=== PATIENT | female | born 1980 | race Caucasian/White ===

== ENCOUNTER 2020-11-15 13:12 | Inpatient (IN) | payer MEDICAID, SELFPAY ==
[2020-11-15 13:15] VITALS: BMI 34.3
[2020-11-15 14:00] VITALS: BP 96/74; PULSE 99; RESP 18; TEMP 36.5; O2SAT 93
[2020-11-15] MEDS: ibuprofen 600 mg Tablet PO ×2 (16:00→21:18)
[2020-11-15] MEDS: hyDROXYzine 25 mg Capsule 50 MG PO (16:01)
--- NOTE | 2020-11-15 16:01 | PC.NURSE ---
PRN VISTARIL 50 MG GIVEN PO PER PT C/O STATED ANXIETY. NO OUTWARD S/S OF ANXIETY NOTED.
[2020-11-15 19:54] VITALS: BP 112/84; PULSE 106; RESP 17; TEMP 37.1; O2SAT 92
[2020-11-15 20:33] LABS: Bilirubin Urine Neg (Negative); Blood Urine 3+ (Negative); Glucose Urine UA Norm (Normal); Ketones Urine Negative (Negative); Leukocyte Esterase Urine 1+ (Negative); Nitrate Urine Negative (Negative); Protein Urine Trace (Negative); Urine Appearance Hazy (CLEAR); Urine Color Yellow (Yellow); Urobilinogen Urine 4 mg/dL (Negative)
[2020-11-15 20:34] LABS: Add Urine Culture? No; Bacteria Urine 2+ /hpf; Mucus Urine 2+ /hpf
[2020-11-15] MEDS: gabapentin 300 mg Capsule PO (21:17)
[2020-11-15] MEDS: mirtazapine 30 mg Tablet PO (21:17)
[2020-11-16] VITALS (10 sets, daily range): BP systolic 109–132; BP diastolic 65–83; PULSE 84–113; RESP 15–20; TEMP 37–37.4; O2SAT 89–96
[2020-11-16] MEDS: ibuprofen 600 mg Tablet PO ×2 (08:20→18:31)
[2020-11-16] MEDS: gabapentin 300 mg Capsule PO ×3 (08:20→20:54)
[2020-11-16] MEDS: fluoxetine 10 mg Capsule PO (08:20)
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
[2020-11-16] MEDS: albuterol 8 gm MDI 1 PUFF INHALATION ×3 (11:59→22:30)
[2020-11-16] MEDS: mirtazapine 30 mg Tablet PO (20:54)
[2020-11-16] MEDS: acetaminophen 325 mg Tablet 650 MG PO (20:54)
[2020-11-16] MEDS: hyDROXYzine 25 mg Capsule 50 MG PO (22:28)
--- NOTE | 2020-11-17 00:50 | PC.NURSE ---
PM assessment Pt denies AH/VH, Denies SI/HI, Denies pain, pt is resting in her room. Pt heart/lung sounds are WNL, v/s are normal.
[2020-11-17 06:00] VITALS: BP 131/75; PULSE 94; RESP 18; TEMP 37.1; O2SAT 90
[2020-11-17] MEDS: gabapentin 300 mg Capsule PO ×3 (08:19→20:18)
[2020-11-17] MEDS: ibuprofen 600 mg Tablet PO ×2 (08:19→16:58)
[2020-11-17] MEDS: fluoxetine 10 mg Capsule PO (08:19)
[2020-11-17] MEDS: acetaminophen 325 mg Tablet 650 MG PO ×2 (11:29→19:43)
[2020-11-17 14:00] VITALS: BP 118/78; PULSE 105; RESP 20; TEMP 36.7; O2SAT 90
[2020-11-17] MEDS: albuterol 8 gm MDI 1 PUFF INHALATION ×2 (15:35→22:40)
[2020-11-17 15:37] VITALS: PULSE 100; RESP 18; O2SAT 96
[2020-11-17] MEDS: hyDROXYzine 25 mg Capsule 50 MG PO ×2 (15:41→22:35)
--- NOTE | 2020-11-17 15:41 | PC.NURSE ---
PRN VISTARIL 50 MG GIVEN PO PER PT C/O STATED ANXIETY. NO OUTWARD S/S OF ANXIETY NOTED. PT HAS BEEN ASLEEP IN BED MOST OF THE DAY. WILL CONT TO MONITOR
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
[2020-11-17] MEDS: mirtazapine 30 mg Tablet PO (20:18)
--- NOTE | 2020-11-17 20:20 | PC.NURSE ---
Pain reassessed. Now 6.
[2020-11-17 21:22] VITALS: BP 117/64; PULSE 93; RESP 17; TEMP 36.8; O2SAT 93
[2020-11-17 22:40] VITALS: PULSE 89; RESP 18; O2SAT 96
[2020-11-17 22:45] VITALS: PULSE 92
--- NOTE | 2020-11-18 02:41 | PC.NURSE ---
PM assessment Patient sleeping at beginning of shift. V/s normal, Heart/ Lung sounds normal, pt confirmed headache/back ache rated 7 on 1-10 pain scale. Med nurse notified, pt received tylenol 650mg po, reported decrease in pain level. Pt came out of room for snack, interacted with other patients for around a 30 min time frame, returned to her room and is still resting at this time. Pt denies all .Will continue to monitor
[2020-11-18 06:00] VITALS: BP 124/71; PULSE 91; RESP 16; TEMP 36.6; O2SAT 96
[2020-11-18] MEDS: albuterol 8 gm MDI 1 PUFF INHALATION (07:09)
[2020-11-18 07:10] VITALS: PULSE 110; RESP 18; O2SAT 92
[2020-11-18] MEDS: gabapentin 300 mg Capsule PO ×3 (08:12→20:55)
[2020-11-18] MEDS: fluoxetine 10 mg Capsule PO (08:12)
[2020-11-18] MEDS: ibuprofen 600 mg Tablet PO ×2 (10:06→20:55)
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
[2020-11-18 14:00] VITALS: BP 101/65; PULSE 95; RESP 20; TEMP 36.4; O2SAT 93
[2020-11-18] MEDS: acetaminophen 325 mg Tablet 650 MG PO (14:22)
[2020-11-18] MEDS: hyDROXYzine 25 mg Capsule 50 MG PO ×2 (16:18→20:53)
[2020-11-18] MEDS: mirtazapine 30 mg Tablet PO (20:55)
[2020-11-18 20:57] VITALS: BP 125/83; PULSE 95; RESP 18; TEMP 36.3; O2SAT 93
[2020-11-18 22:18] VITALS: PULSE 95; RESP 17; O2SAT 94
[2020-11-19 06:00] VITALS: BP 102/65; PULSE 87; RESP 15; TEMP 36.8; O2SAT 92
[2020-11-19] MEDS: sulfamethoxazole-trimeth DS 160-800 mg Tablet 1 TAB PO ×2 (08:47→17:27)
[2020-11-19] MEDS: gabapentin 300 mg Capsule PO ×3 (08:47→20:43)
[2020-11-19] MEDS: fluoxetine 10 mg Capsule PO (08:48)
[2020-11-19] MEDS: ibuprofen 600 mg Tablet PO ×2 (09:04→14:11)
[2020-11-19] MEDS: hyDROXYzine 25 mg Capsule 50 MG PO (13:57)
[2020-11-19 14:00] VITALS: BP 123/70; PULSE 98; RESP 18; TEMP 37.2; O2SAT 94
--- NOTE | 2020-11-19 18:23 | P.PN_ITS ---
Subjective NPU Subjective: Interval history: Lida presented to session reporting wanting to discharge to her dad's today. We had a long but unfruitful conversation about the legal ability of her father to not allow her back in his home. This ended in her saying she was going to call a junior art director to make sure that her father could not treat her unfairly. We discussed the role that her drug use and erratic behavior might be playing in his concerned about her coming home which she was having nothing of. She continues to take the medication and denied any side effects. Mental Status Exam MSE Comments: This is an obese white female in hospital scrubs with adequate grooming and limited eye contact. No abnormal movements except for mild psychomotor agitation. More cooperative with exam in mild to moderate distress. Speech was more normal rate and volume. Mood described as fine, affect irritable. Thought process organized. Thought content: Patient denies suicidal or homicidal ideation, there were no delusions reported, but she does tell a story that in all likelihood was delusional or representing hallucinations, she denied any auditory or visual hallucinations. Attention and concentration were intact and memory was unreliable but none were formally tested. She is alert and oriented x3. Insight and judgment were limited, impulse control appeared limited. Vitals/I&O/Wt Last Vital Signs Temp 98.9 F 11/19/20 14:00 Pulse 98 11/19/20 14:00 Resp 18 11/19/20 14:00 BP 123/70 11/19/20 14:00 Pulse Ox 94 11/19/20 14:00 A&P Additional A&P Information (1) Psychotic disorder: (2) Methamphetamine abuse: Additional A&P Information Patient presenting from [facility] emergency department with history of schizophrenia and methamphetamine abuse for recent acute episode of psychotic symptoms in the context of recent methamphetamine use. Patient also reporting some depressive symptoms related to ongoing stressors. Currently denying any suicidal ideation or thoughts about self-harm, do not behaving in any way n ecessitating admission or needing medication adjustments. 1. Continue current medication. 2. Continue every 15 minute checks for safety. 3. Encourage individual, group and milieu therapies. 4. Encourage sober living treatment after discharge at the highest level of care to which she is willing to commit. 5. Will work with social work team for possible discharge in the next 48 hours. Attestations NPU Medical Necessity Statement*: Inpatient hospitalization is medically necessary and the clinically appropriate intervention at this time. We will monitor medications and make changes as indicated. Likely length of stay 1-3 days. Coding Level of Care Code Acute Manager Business for Chris Layton
[2020-11-19 19:57] VITALS: BP 119/74; PULSE 91; RESP 16; TEMP 36.9; O2SAT 93
[2020-11-19] MEDS: calcium carbonate 500 mg Chew Tablet PO (20:43)
[2020-11-19] MEDS: mirtazapine 30 mg Tablet PO (20:43)
[2020-11-19] MEDS: acetaminophen 325 mg Tablet 650 MG PO (20:43)
[2020-11-20 06:00] VITALS: BP 103/67; PULSE 100; RESP 16; TEMP 36.8; O2SAT 94
[2020-11-20] MEDS: sulfamethoxazole-trimeth DS 160-800 mg Tablet 1 TAB PO ×2 (08:45→17:38)
[2020-11-20] MEDS: gabapentin 300 mg Capsule PO ×3 (08:46→20:38)
[2020-11-20] MEDS: ibuprofen 600 mg Tablet PO ×2 (08:46→20:38)
[2020-11-20] MEDS: fluoxetine 10 mg Capsule PO (08:46)
[2020-11-20] MEDS: acetaminophen 325 mg Tablet 650 MG PO (11:55)
[2020-11-20] MEDS: OLANZapine 5 mg ODT PO (12:29)
--- NOTE | 2020-11-20 12:29 | PC.NURSE ---
patient was on the phone with her father. She got very agitated and anxious.
[2020-11-20 14:00] VITALS: BP 115/72; PULSE 102; RESP 17; TEMP 36.7; O2SAT 97
[2020-11-20 15:01] VITALS: PULSE 102; RESP 18; O2SAT 97
--- NOTE | 2020-11-20 19:30 | P.PN_ITS ---
Subjective NPU Subjective: Interval history: Lida presents today continuing to be frustrated with her dad but seeming to be a little more reasonable. She reports that her mine production engineer supposed to come tomorrow and sister and figuring out how to get her stuff from her dad's and where she might go. We discussed her 96-hour hold ending tomorrow and there being no current plan to force her to stay longer. We agreed we would work to have the treatment team and her mine production engineer collaborate for the best recovery supportive situation for discharge. Mental Status Exam MSE Comments: This is an obese white female in hospital scrubs with adequate grooming and eye contact. No abnormal movements. More cooperative with exam in no acute distress. Speech was more normal rate and volume. Mood described as okay, affect less irritable. Thought process organized. Thought content: Patient denies suicidal or homicidal ideation, there were no delusions reported he did not prep the stolen credit cards or anything, she denied any auditory or visual hallucinations. Attention and concentration were intact and memory was unreliable but none were formally tested. She is alert and oriented x3. Insight and judgment were limited, but improving, impulse control appeared limited. Vitals/I&O/Wt Last Vital Signs Temp 98.0 F 11/20/20 14:00 Pulse 102 H 11/20/20 15:01 Resp 18 11/20/20 15:01 BP 115/72 11/20/20 14:00 Pulse Ox 97 11/20/20 15:01 Weight last 48 hrs Weight 97.522 kg A&P Additional A&P Information (1) Psychotic disorder: (2) Methamphetamine abuse: Additional A&P Information [facility] history of schizophrenia and methamphetamine abuse for recent acute episode of psychotic symptoms in the context of recent methamphetamine use. Patient also reporting some depressive symptoms related to ongoing stressors. Currently denying any suicidal ideation or thoughts about self-harm, do not behaving in any way necessitating admission or needing medication adjustments. 1. Continue current medication. 2. Continue every 15 minute checks for safety. 3. Encourage individual, group and milieu therapies. 4. Encourage sober living treatment after discharge at the highest level of care to which she is willing to commit. 5. Will work with social work team for possible discharge in the morning. Attestations NPU Medical Necessity Statement*: Inpatient hospitalization is medically necessary and the clinically appropriate intervention at this time. We will monitor medications and make changes as indicated. Likely length of stay 1-2 days. Coding Level of Care Code Acute Portable Canteen Operator for Chris Layton
[2020-11-20 20:19] VITALS: BP 128/78; PULSE 107; RESP 16; TEMP 37.1; O2SAT 96
[2020-11-20] MEDS: albuterol 8 gm MDI 1 PUFF INHALATION (20:26)
[2020-11-20 20:27] VITALS: PULSE 107; RESP 20; O2SAT 97
[2020-11-20] MEDS: hyDROXYzine 25 mg Capsule 50 MG PO (20:37)
[2020-11-20] MEDS: mirtazapine 30 mg Tablet PO (20:38)
[2020-11-20] MEDS: trazodone 50 mg Tablet PO (20:38)
[2020-11-21 06:00] VITALS: BP 134/67; PULSE 90; RESP 18; TEMP 37.2; O2SAT 94
[2020-11-21] MEDS: gabapentin 300 mg Capsule PO ×2 (08:31→14:05)
[2020-11-21] MEDS: sulfamethoxazole-trimeth DS 160-800 mg Tablet 1 TAB PO (08:31)
[2020-11-21] MEDS: fluoxetine 10 mg Capsule PO (08:31)
[2020-11-21] MEDS: albuterol 8 gm MDI 1 PUFF INHALATION (09:01)
[2020-11-21 09:02] VITALS: PULSE 122; RESP 18; O2SAT 97
[2020-11-21] MEDS: acetaminophen 325 mg Tablet 650 MG PO (09:23)
[2020-11-21] MEDS: hyDROXYzine 25 mg Capsule 50 MG PO (10:45)
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
[2020-11-21] MEDS: ibuprofen 600 mg Tablet PO (14:03)
[2020-11-21 15:47] VITALS: PULSE 122; RESP 18; O2SAT 97
== END 2020-11-21 16:01 | disposition home or self-care (01) | DRG 885 ==
PROVIDERS: Admitting Provider Psychiatry & Neurology Psychiatry; Visit Provider Psychiatry & Neurology Psychiatry
DX: F23 Brief psychotic disorder (principal); F15.10 Other stimulant abuse, uncomplicated
CPT/HCPCS: 12345; 81001; 94640; J3535